=== PATIENT | female | born 1985 | race Caucasian/White ===

== ENCOUNTER 2018-08-03 09:35 | Emergency (ER) | payer OTHER ==
[2018-08-03] MEDS ORDERED: ACETAMINOPHEN 325 MG TABLET PO ONE (09:55)
--- NOTE | 2018-08-03 09:56 | ER Document Report ---
ED Medical Screen (RME) - General Chief Complaint: Pelvic Pain Stated Complaint: PELVIC PAIN Time Seen by Provider: 08/03/18 09:51 Primary Care Provider: JAMEL CHACON MD [Primary Care Provider] - Follow up as needed Notes: Patient is a 32-year-old female that presents to the emergency department for chief complaint of pelvic pain and cramping. Patient reports having left-sided sharp stabbing pelvic pain, but also getting cramping bilaterally, she is had some urinary frequency, she does have an IUD, and is requesting to have it removed today if possible.. ROS: Other than noted above, the 12 point review of systems was reviewed with the patient and were negative, all pertinent findings are included in the HPI. PHYSICAL EXAMINATION: Vital signs reviewed. GENERAL: Well-appearing, well-nourished and in no acute distress. HEAD: Atraumatic, normocephalic. EYES: Pupils equal round extraocular movements intact, conjunctiva are normal. ENT: Nares patent NECK: Normal range of motion CV: Heart regular rate and rhythm LUNGS: No respiratory distress Musculoskeletal: Normal range of motion NEUROLOGICAL: Normal speech PSYCH: Normal mood, normal affect. MDM: Patient seen and examined for rapid initial assessment. Vital signs reviewed. A comprehensive ED assessment and evaluation of the patient, analysis of test results and completion of the medical decision making process will be conducted by additional ED providers. *Note is created using voice recognition software and may contain spelling, syntax or grammatical errors. TRAVEL OUTSIDE OF THE [place] IN LAST 30 DAYS: No - Related Data Allergies/Adverse Reactions: cefoxitin sodium [From Mefoxin] Allergy (Verified 07/22/12 17:42) Past Medical History - General Last Menstrual Period: 06/29/2018 - Social History Chew tobacco use (# tins/day): No Frequency of alcohol use: Occasional Drug Abuse: None Renal/ Medical History: Denies: Hx Peritoneal Dialysis Past Surgical History: Reports: Hx Section - Immunizations Immunizations up to date: Yes Hx Diphtheria, Pertussis, Tetanus Vaccination: No - DECLINES Physical Exam - Vital signs Vitals: Temp Pulse Resp BP Pulse Ox 98.6 F 101 H 16 119/79 100 08/03/18 09:46 08/03/18 09:46 08/03/18 09:46 08/03/18 09:46 08/03/18 09:46 Course - Vital Signs Vital signs: Temp Pulse Resp BP Pulse Ox 98.6 F 101 H 16 119/79 100 08/03/18 09:46 08/03/18 09:46 08/03/18 09:46 08/03/18 09:46 08/03/18 09:46 Doctor's Discharge - Discharge Referrals: JAMEL CHACON MD [Primary Care Provider] - Follow up as needed
[2018-08-03 10:51] LABS: APPEARANCE,URINE CLOUDY; BILIRUBIN,URINE NEGATIVE (NEGATIVE); COLOR,URINE AMBER; GLUCOSE, URINE NEGATIVE (NEGATIVE); KETONES,URINE TRACE mg/dL (NEGATIVE); LEUKOCYTE ESTERASE,URINE SMALL (NEGATIVE); NITRITE,URINE NEGATIVE (NEGATIVE); PROTEIN,URINE 30 mg/dL (NEGATIVE); URINE SPECIFIC GRAVITY 1.025; UROBILINOGEN,URINE NEGATIVE mg/dL (<2.0)
--- NOTE | 2018-08-03 11:13 | RADIOLOGY REPORT (SQ) ---
EXAM DESCRIPTION: U/S NON OB PEL TV W/DOPPLER COMPLETED DATE/TIME: 08/03/2018 10:50 am REASON FOR STUDY: bilateral pelvic pain, L>R COMPARISON: None. TECHNIQUE: Dynamic and static grayscale images acquired of the pelvis via transvaginal approach and recorded on PACS. Additional selected color Doppler and spectral images recorded. LIMITATIONS: None. FINDINGS: UTERUS: Contour normal. IUD. No mass. ENDOMETRIAL STRIPE: No focal or generalized thickening. No masses. CERVIX: No nabothian cysts. RIGHT OVARY AND DOPPLER: Normal size. No worrisome masses. Normal arterial vascular flow without evid ence for torsion. LEFT OVARY AND DOPPLER: Normal size. No worrisome masses. Normal arterial vascular flow without evide nce for torsion. FREE FLUID: None noted. OTHER: No other significant finding. MEASUREMENTS: UTERUS: 7.9 x 3.5 x 5.6 cm ENDOMETRIAL STRIPE: 4 mm RIGHT OVARY: 3.3 x 1.8 x 2.7 cm LEFT OVARY: 3.0 x 1.8 x 1.8 cm IMPRESSION: NORMAL TRANSVAGINAL PELVIC ULTRASOUND. TECHNICAL DOCUMENTATION: JOB ID: [id number]- All Rights Reserved Rev-10/25 Reading location - IP/workstation name: [email or web address]
--- NOTE | 2018-08-03 11:27 | ER Document Report ---
ED General - General Chief Complaint: Pelvic Pain Stated Complaint: PELVIC PAIN Time Seen by Provider: 08/03/18 09:51 Primary Care Provider: JAMEL CHACON MD [Primary Care Provider] - Follow up as needed Notes: Patient is a 32-year-old female presents to the emergency department complaints of left pelvic sharp intermittent pains and lower back pain. Patient is denying any dysuria or vaginal discharge. States she did start her menses and light spotting yesterday. Patient states she took an at-home test because "why not," and states that it was faintly positive which concerned her because she has an IUD in place. Patient states she has not concerns for any sexually transmitted infections, she is also refusing a pelvic exam. States she has felt her IUD strings multiple times in the last couple days and feels as though it is in place. Past medical history: None Medications: None Allergies: Cephalosporins Last menstrual period 06/29/2018 TRAVEL OUTSIDE OF THE [place] IN LAST 30 DAYS: No - Related Data Allergies/Adverse Reactions: cefoxitin sodium [From Mefoxin] Allergy (Verified 08/03/18 09:59) Past Medical History - General Information source: Patient Last Menstrual Period: 06/29/2018 - Social History Smoking Status: Never Smoker Chew tobacco use (# tins/day): No Frequency of alcohol use: Occasional Drug Abuse: None Family History: Reviewed & Not Pertinent Patient has suicidal ideation: No Patient has homicidal ideation: No Renal/ Medical History: Denies: Hx Peritoneal Dialysis Past Surgical History: Reports: Hx Section - Immunizations Immunizations up to date: Yes Hx Diphtheria, Pertussis, Tetanus Vaccination: No - DECLINES Review of Systems - Review of Systems Constitutional: No symptoms reported EENT: No symptoms reported Cardiovascular: No symptoms reported Respiratory: No symptoms reported Gastrointestinal: See HPI Genitourinary: See HPI Female Genitourinary: See HPI Musculoskeletal: See HPI Skin: No symptoms reported Hematologic/Lymphatic: No symptoms reported Neurological/Psychological: No symptoms reported Physical Exam - Vital signs Vitals: Temp Pulse Resp BP Pulse Ox 98.6 F 101 H 16 119/79 100 08/03/18 09:46 08/03/18 09:46 08/03/18 09:46 08/03/18 09:46 08/03/18 09:46 - Notes Notes: GENERAL: Alert, interacts well. No acute distress. HEAD: Normocephalic, atraumatic. EYES: Pupils equal, round, and reactive to light. Extraocular movements intact. ENT: Oral mucosa moist, tongue midline. NECK: Full range of motion. Supple. Trachea midline. LUNGS: Clear to auscultation bilaterally, no wheezes, rales, or rhonchi. No respiratory distress. HEART: Regular rate and rhythm. No murmur ABDOMEN: Soft, non-tender. Non-distended. Bowel sounds present in all 4 quadrants. Mild left pelvic pain noted. EXTREMITIES: Moves all 4 extremities spontaneously. No edema, normal radial and dorsalis pedis pulses bilaterally. No cyanosis. BACK: no cervical, thoracic, lumbar midline tenderness. No saddle anesthesia, normal distal neurovascular exam. No CVA tenderness noted bilaterally NEUROLOGICAL: Alert and oriented x3. Normal speech. cranial nerves II through XII grossly intact PSYCH: Normal affect, normal mood. SKIN: Warm, dry, normal turgor. No rashes or lesions noted. Course - Re-evaluation Re-evalutation: 08/03/18 11:26 Patient's urine showed no signs of infection. Her specific gravity is slightly elevated. Discussed with her continued hydration at home. Patient's ultrasound shows no findings of bilateral ovarian torsion. Patient's hCG was negative. Discussed these results with patient at bedside and she is agreeing with plan to follow-up with [facility] and primary care provider. Patient states she currently does not have any pain. Discussed that if she feels the IUD strings in place along with the findings of an IUD within her uterus there is no emergent need for us to take the IUD out in the emergency room. Discussed following up closely with [facility]. Patient stable for discharge, agreeable with plan. - Vital Signs Vital signs: Temp Pulse Resp BP Pulse Ox 98.6 F 101 H 16 119/79 100 08/03/18 09:46 08/03/18 09:46 08/03/18 09:46 08/03/18 09:46 08/03/18 09:46 - Laboratory Laboratory results interpreted by me: 08/03/18 10:00 Urine Protein 30 H Urine Ketones TRACE H Urine Blood LARGE H Ur Leukocyte Esterase SMALL H Discharge - Discharge Clinical Impression: Pelvic pain Condition: Stable Disposition: HOME, SELF-CARE Instructions: [facility] [facility], Pelvic Pain ([facility]) Additional Instructions: As we discussed you have been seen and treated in the emergency department for your left pelvic pain. Your urine shows no signs of infection. Unfortunately today you did not want to do gonorrhea, chlamydia, trichomonas, bacterial vaginosis, yeast, pelvic inflammatory disease testing. We were unable to rule all of these out. These could be the cause of your pelvic pain and you should follow-up with your primary care provider, [facility], [facility]. Your ultrasound revealed no abnormalities at this time. Please make sure you immediately return to the emergency room should he have any other concerning symptoms. Referrals: JAMEL CHACON MD [Primary Care Provider] - Follow up as needed AMAYA GUNTER MD [ACTIVE STAFF] - Follow up as needed
[2018-08-03 12:30] VITALS: BP 103/73
== END 2018-08-03 12:45 | disposition home or self-care (01) ==
LOC: ER 09:35
DX: R10.2 Pelvic and perineal pain (principal); M54.5 Low back pain; Z97.5 Presence of (intrauterine) contraceptive device; Z88.1 Allergy status to other antibiotic agents
CPT/HCPCS: 76830; 81001; 81025; 87086; 87088; 93976; 99284